=== PATIENT | female | born 1980 | race Caucasian/White ===

== ENCOUNTER 2021-06-21 11:50 | Inpatient (IN) | payer MEDICAID ==
[~2021-06-21] VITALS: Ht 160 cm; Wt 54.4 kg
[~2021-06-21 11:50] MED LIST: CYCLOBENZAPRINE5 MG PO; MOBIC15 MG PO; NORCO 5-325 TA1 EACH PO
[2021-06-21 14:06] LABS: HEMOGLOBIN 14.6 gm/dl (12.3-15.3); RED BLOOD COUNT 4.88 M/UL (4.00-5.10); WHITE BLOOD COUNT 11.7 K/UL (4.5-11.0)
[2021-06-21] MEDS ORDERED: MULTIVITAMIN1 EACH PO (16:49)
[2021-06-22 04:09] LABS: HEMOGLOBIN 14.2 gm/dl (12.3-15.3); RED BLOOD COUNT 4.71 M/UL (4.00-5.10); WHITE BLOOD COUNT 13.9 K/UL (4.5-11.0)
[2021-06-22 04:35] LABS: BUN/CREATININE RATIO 21 (0-10)
--- NOTE | 2021-06-22 18:21 | NUR ---
1700 Patient did not return to the floor. She was transferred to [place] per helicopter.
== END 2021-06-22 17:20 | disposition short-term general hospital (02) | DRG 247 ==
LOC: ER1 11:50 → M/S 15:49 → CDU 15:49 → M/S 23:17
PROVIDERS: Internal Medicine; Physician Assistant; ADMIT Internal Medicine
PROC: B24BZZ4 Ultrasonography of Heart with Aorta, Transesophageal (ICD-10-PCS; 2021-06-21)
PROC: 027034Z Dilation of Coronary Artery, One Artery with Drug-eluting Intraluminal Device, Percutaneous Approach (ICD-10-PCS; principal; 2021-06-22)
PROC: B241ZZ3 Ultrasonography of Multiple Coronary Arteries, Intravascular (ICD-10-PCS; 2021-06-22)
PROC: 4A023N7 Measurement of Cardiac Sampling and Pressure, Left Heart, Percutaneous Approach (ICD-10-PCS; 2021-06-22)
PROC: B2111ZZ Fluoroscopy of Multiple Coronary Arteries using Low Osmolar Contrast (ICD-10-PCS; 2021-06-22)
DX: I21.4 Non-ST elevation (NSTEMI) myocardial infarction (principal); I16.0 Hypertensive urgency; Z20.822 Contact with and (suspected) exposure to COVID-19; J45.909 Unspecified asthma, uncomplicated; I25.10 Atherosclerotic heart disease of native coronary artery without angina pectoris; G43.919 Migraine, unspecified, intractable, without status migrainosus; I10 Essential (primary) hypertension; I34.0 Nonrheumatic mitral (valve) insufficiency; F17.210 Nicotine dependence, cigarettes, uncomplicated; Z82.49 Family history of ischemic heart disease and other diseases of the circulatory system; Z98.51 Tubal ligation status; Z91.040 Latex allergy status
CPT/HCPCS: ECHO; 36415; 71045; 80048; 80053; 82550; 82553; 83735; 83874; 84484; 85025; 85347; 85610; 85730; 92978; 93005; 93306; 99152; 99153; 99285; C1725; C1753; C1769; C1874; C1887; C9600; G0378; J0360; J0461; J1644; J2250; J3010; J7040; Q9967; U0002